=== PATIENT | female | born 1980 | race Caucasian/White ===

== ENCOUNTER 2024-08-08 05:21 | Inpatient (IN) | payer OTHER ==
[2024-08-08] MEDS: GABAPENTIN 300 MG CAPSULE PO ONE (06:54)
[2024-08-08] MEDS: PHENAZOPYRIDINE HCL 100 MG TABLET (FP) PO ONE (06:54)
[2024-08-08] MEDS ORDERED: ROCURONIUM BROMIDE 50 MG/5 ML SYRINGE ONE (07:51)
[2024-08-08] MEDS ORDERED: PROPOFOL 20 ML ONE (07:51)
[2024-08-08] MEDS ORDERED: MIDAZOLAM HCL 2 MG/2 ML SINGLE DOSE VIAL ONE (07:51)
[2024-08-08] MEDS: ceFAZolin SODIUM 1 GM VIAL IVPB ONE (08:03)
[2024-08-08] MEDS ORDERED: DEXAMETHASONE SOD PHOSPHATE 4 MG/1 ML VIAL ONE (09:44)
[2024-08-08] MEDS ORDERED: ONDANSETRON 4 MG/2 ML VIAL ONE (09:44)
[2024-08-08] MEDS ORDERED: ACETAMINOPHEN INJECTION 100 ML ONE (09:46)
[2024-08-08] MEDS ORDERED: SUGAMMADEX SODIUM 200 MG/2 ML VIAL ONE (09:48)
[2024-08-08] MEDS ORDERED: IBUPROFEN 800 MG/8 ML IJ IVPB PRN (10:29)
[2024-08-08] MEDS ORDERED: ONDANSETRON 4 MG/2 ML VIAL IVPUSH PRN ×2 (10:29→12:13)
[2024-08-08] MEDS ORDERED: oxyCODONE HCL 5 MG TABLET PO PRN ×2 (10:29)
[2024-08-08] MEDS ORDERED: BISACODYL 5 MG TABLET.DR (FP) PO PRN (10:29)
[2024-08-08] MEDS: LACTATED RINGERS SOLUTION 1,000 ML IV SCH (11:00)
[2024-08-08] MEDS: CEFAZOLIN 2 GM in DEXTROSE 5%-WATER - 100 ML IVPB ONE (11:08)
[2024-08-08] MEDS: ACETAMINOPHEN 500 MG TABLET (FP) PO ONE (11:09)
[2024-08-08] MEDS: CEFAZOLIN 1 GM in DEXTROSE 5%-WATER - 50 ML IVPB SCH (17:02)
[2024-08-08] MEDS: ACETAMINOPHEN 1000 MG/100 ML BAG IVPB SCH (17:03)
[2024-08-08 17:28] LABS: HEMATOCRIT 34.5 % (32.4-45.2); HEMOGLOBIN 11.5 GM/dL (10.7-15.3); MCH 28.1 pg (25.7-33.7); MCHC 33.3 g/dl (32.0-36.0); MEAN CELL VOLUME 84.4 fl (80-96); MEAN PLT VOLUME 8.6 fl (7.5-11.1); PLATELET COUNT 210 10^3/uL (134-434); RBC 4.09 M/mm3 (3.60-5.2); RDW 14.3 % (11.6-15.6); WHITE BLOOD COUNT 13.5 K/mm3 (4.0-10.0)
[2024-08-08 17:53] LABS: POTASSIUM 3.6 mmol/L (3.5-5.1)
[2024-08-08 17:54] LABS: CALCIUM 8.3 mg/dL (8.5-10.1)
[2024-08-08 17:55] LABS: BLOOD UREA NITROGEN 9.8 mg/dL (7-18)
[2024-08-08 17:58] LABS: CREATININE 0.4 mg/dL (0.55-1.3)
[2024-08-09 07:44] LABS: HEMATOCRIT 30.4 % (32.4-45.2); HEMOGLOBIN 10.1 GM/dL (10.7-15.3); MCHC 33.3 g/dl (32.0-36.0); MEAN CELL VOLUME 84.1 fl (80-96); MEAN PLT VOLUME 8.6 fl (7.5-11.1); PLATELET COUNT 184 10^3/uL (134-434); RBC 3.62 M/mm3 (3.60-5.2); RDW 14.6 % (11.6-15.6)
[2024-08-09 08:44] LABS: POTASSIUM 3.3 mmol/L (3.5-5.1)
[2024-08-09 08:46] LABS: BLOOD UREA NITROGEN 6.3 mg/dL (7-18)
[2024-08-09 08:49] LABS: CREATININE 0.4 mg/dL (0.55-1.3)
[2024-08-09] MEDS: ENOXAPARIN NA (PORCINE) 40 MG/0.4 ML DISP.SYRIN SQ SCH (09:34)
[2024-08-09] MEDS: POTASSIUM CHLORIDE TABS 20 MEQ TABLET.ER (FP) PO SCH (10:59)
[2024-08-09] MEDS: ACETAMINOPHEN 500 MG TABLET (FP) PO PRN (15:07)
[2024-08-09] MEDS: SIMETHICONE 80 MG TAB.CHEW (FP) PO PRN (15:09)
[2024-08-09] MEDS: DOCUSATE SODIUM 100 MG CAPSULE (FP) PO PRN (21:36)
[2024-08-10 08:50] LABS: BASO % 0.2 % (0-2.0); EOS % 1.3 % (0-4.5); HEMATOCRIT 32.3 % (32.4-45.2); LYMPH % 27.4 % (8-40); MCH 28.6 pg (25.7-33.7); MCHC 33.9 g/dl (32.0-36.0); MEAN CELL VOLUME 84.2 fl (80-96); MEAN PLT VOLUME 8.6 fl (7.5-11.1); MONO % 7.5 % (3.8-10.2); NEUT % 63.6 % (42.8-82.8); PLATELET COUNT 205 10^3/uL (134-434); RBC 3.84 M/mm3 (3.60-5.2); RDW 14.5 % (11.6-15.6); WHITE BLOOD COUNT 7.1 K/mm3 (4.0-10.0)
[2024-08-10 09:03] LABS: POTASSIUM 3.8 mmol/L (3.5-5.1)
[2024-08-10 09:04] LABS: BLOOD UREA NITROGEN 6.9 mg/dL (7-18); CALCIUM 8.5 mg/dL (8.5-10.1)
[2024-08-10 09:07] LABS: CREATININE 0.4 mg/dL (0.55-1.3)
[2024-08-10 13:15] VITALS: RESP 17; TEMP 98.4
[2024-08-10 14:46] VITALS: BP 111/58; PULSE 72
== END 2024-08-10 14:25 | disposition home or self-care (01) | DRG 519 ==
LOC: JASUSAT 05:21 → J2C 10:30 → J3W 13:55
PROVIDERS: ADMIT Obstetrics & Gynecology; ATTEND Obstetrics & Gynecology
PROC: 0UB14ZZ Excision of Left Ovary, Percutaneous Endoscopic Approach (ICD-10-PCS; 2024-08-08)
PROC: 8E0W4CZ Robotic Assisted Procedure of Trunk Region, Percutaneous Endoscopic Approach (ICD-10-PCS; 2024-08-08)
PROC: 0DNW4ZZ Release Peritoneum, Percutaneous Endoscopic Approach (ICD-10-PCS; 2024-08-08)
PROC: 0UB94ZZ Excision of Uterus, Percutaneous Endoscopic Approach (ICD-10-PCS; principal; 2024-08-08 07:30)
PROC: 0UT74ZZ Resection of Bilateral Fallopian Tubes, Percutaneous Endoscopic Approach (ICD-10-PCS; 2024-08-08 07:30)
DX: D25.9 Leiomyoma of uterus, unspecified (principal); N83.202 Unspecified ovarian cyst, left side; N73.6 Female pelvic peritoneal adhesions (postinfective); N93.9 Abnormal uterine and vaginal bleeding, unspecified; R10.9 Unspecified abdominal pain; R42 Dizziness and giddiness
CPT/HCPCS: 36415; 80048; 81025; 85025; 85027; 86850; 86900; 86901; 88305-TC; 88307-TC; 94010; 94760; J0131